=== PATIENT | female | born 1950 | race Caucasian/White ===

== ENCOUNTER → 2017-01-22 | Day surgery (SDC) | payer MEDICARE ==
[~2017-01-22] VITALS: Ht 160 cm; Wt 64.3 kg
[~2017-01-22] MED LIST: *ONDANSETRON 4 MG VIAL PERIprocedural Use ONLY ONE; *PROMETHAZINE 25 MG/ML VIAL PERIprocedural use ONLY ONE; *morphine SULFATE 8 MG/ML PERIprocedure ONLY ONE; ACETAMINOPHEN 1000 MG/100 ML 100 ML IV SCH; BUPIVACAINE/EPINEPHRINE 0.25% PF 30 ML VIAL ONE; CHLORHEXIDINE GLUCONATE 2 % 1 PACK (2 CLOTHS) TOPICAL PRN; DEXAMETHASONE SOD PHOS 4 MG/ML VIAL IV ONE; DO NOT ADM ANY ANTICOAGULANT DRUGS PRN; GLUCAGON 1 MG/ML VIAL ONE; GLYCOPYRROLATE 1 MG/5 ML SYRINGE IV PUSH ONE; LACTATED RINGER'S 1000 ML IV PRN; LIDOCAINE HCL 1% PF 5 ML SYRINGE OTHER ONE; METOPROLOL TARTRATE 25 MG TAB PO PRN; MIDAZOLAM HCL 2 MG/2 ML VIAL IV ONE; MORPHINE SULFATE 4 MG/ML INJ IV PUSH PRN; NEOSTIGMINE 5 MG/5 ML SYRINGE IV PUSH ONE; ONDANSETRON HCL 4 MG/2 ML VIAL IV PUSH ONE; ONDANSETRON HCL 4 MG/2 ML VIAL IV PUSH PRN; PANT20TA2 PO; POVIDONE IODINE 5% (ANTISEPSIS KIT) 4 APPLICATIONS EACH NARE PRN; PROPOFOL 200 MG/20 ML AMP IV ONE; ROCURONIUM INJ 50 MG/5 ML SYRINGE IV PUSH ONE; SODIUM CHLORID 0.9% 500 ML IV PRN; SODIUM CHLORIDE 0.9% FLUSH 10 ML FLUSH IV FLUSH PRN; SODIUM CHLORIDE 0.9% FLUSH 10 ML FLUSH IV FLUSH SCH; ceFAZolin 2 GM PREMIX 50 ML IV SCH; metroNIDAZOLE 500 MG INJ 100 ML IV SCH; oxyCODONE/ACETAMINOPHEN 5 MG/325 MG TAB PO PRN
--- NOTE | 2017-01-22 11:20 | PD.OP ---
cc: Dennis Beltrán MD; Consuelo Rao MD; Mirtha Taylor MD Operative Report Date of Surgery: Jan 22, 2017 Preoperative Diagnosis: (1) Porcelain gallbladder (2) Hyperbilirubinemia Postoperative Diagnosis: (1) Porcelain gallbladder (2) Hyperbilirubinemia (3) Ileitis, terminal Procedure: Laparoscopic cholecystectomy with intraoperative cholangiogram Anesthesia: ADRIENNE Surgeon: Dennis Beltrán [employer] Professor(s): Jossie MCCLELLAN Operation and Findings: Complications: None apparent EBL: 50cc Operative findings: The gallbladder was not acutely inflamed. Cholangiogram was performed and there appeared to be some layering in the distal common bile duct with only a very small amount of contrast proceeding through the ampulla. The terminal ileum for 10-15 cm was significantly inflamed and thickened with creeping fat present consistent with Crohn's disease. Procedure in detail: The patient was taken to the operating room and placed in the supine position. General endotracheal anesthesia was induced. The abdomen was prepped and draped in usual sterile fashion and a surgical timeout was performed to verify correct patient procedure and site. Appropriate perioperative antibiotics were administered. Local anesthetic was injected in the skin and subcutaneous tissue superior to the umbilicus and a 5 mm incision performed. The abdomen was entered using the Optiview 5 mm trocar with direct laparoscopic visualization. The abdomen was then insufflated to 15 mmHg with CO2 gas which the patient tolerated well. Next a 12 mm port was placed in the epigastrium and two 5 mm ports in the right upper quadrant and right lateral abdomen. The patient was placed in reverse Trendelenburg position and turned slightly to the left. Attention was turned to the right upper quadrant and the dome of the gallbladder was grasped and retracted cephalad. The infundibulum was retracted laterally to expose Calot's triangle. Blunt dissection and judicious use of electrocautery was used to expose the cystic duct and the cystic artery directly entering the gallbladder. Two clips were placed proximally on the cystic artery and one distally and it was transected. A clip was placed distally on the cystic duct and the duct was sharply incised care home across. The Gilbert cholangiogram catheter was placed through the right upper quadrant port into the cystic duct and it clip was used to secure it in place. A total of 40 cc of one to one mixture of contrast dye and normal saline was used to perform the cholangiogram. The entire intra-and extrahepatic biliary tree was visible. There was some layering in the distal common bile duct and only a very small amount of contrast entered the duodenum. However no clear filling defects were identified. At this point the cholangiogram catheter was removed. The gallbladder was fully removed from the liver bed using electrocautery and removed from the abdomen using an Endo Catch bag. The cystic duct required more dissection to fully delineated and then an Endoloop was placed around the cystic duct. Some of the contrast and bile had leaked from the cystic duct stump and therefore the right upper quadrant was copiously irrigated. The left lobe of the liver had an area of bleeding from trocar placement. Hemostasis was achieved using electrocautery and 1 g of Nabil. Attention then was turned to the right lower quadrant to evaluate the terminal ileum due to recent imaging findings and her symptoms. 10-15 cm of terminal ileum was obviously very inflamed as well as a thickened. There was creeping fat present. The appendix was normal. The cecum may have had some inflammation as well. At this point, the abdomen was allowed to desufflate and trochars were removed. The fascia at the 12 mm port site was closed with 0 Vicryl suture. Skin was closed with subcuticular 4-0 Monocryl as well as Dermabond. The patient tolerated the procedure well and was extubated and taken to PACU in stable condition. All sponge and instrument counts were correct. Dennis Beltrán MD Jan 22, 2017 11:20
--- NOTE | 2017-01-22 11:28 | RADRPT ---
EXAM DATE/TIME: 01/22/2017 10:01 [facility] COMPARISON: No previous studies available for comparison. INDICATIONS : Interoperative cholangiogram for laproscopic cholecystectomy. FLUORO TIME: 1.6 minutes IMAGE COUNT: 3 MEDICAL HISTORY : None. SURGICAL HISTORY : None. ENCOUNTER: Initial ACUITY: 1 day PAIN SCORE: Non-responsive. LOCATION: Right upper quadrant abdomen PROCEDURE: CHOLANGIOGRAM, OPERATIVE Intraoperative cholangiogram. In the operating room, the cystic duct stump was injected and radiographs obtained. The examination demonstrates faint radiolucent defects within the common bile duct. There is no flow into the duodenum. CONCLUSION: Common bile duct defects with no flow into the duodenum. Dmitri Browne MD on January 22, 2017 at 11:23 Board Certified Radiologist. This report was verified electronically.
[2017-01-22 14:00] VITALS: BP 149/74; PULSE 58; RESP 20; TEMP 97.5; O2SAT 95
== END | disposition home or self-care (01) ==
LOC: HSDC 05:43
PROVIDERS: ATTEND Surgery
DX: K80.10 Calculus of gallbladder with chronic cholecystitis without obstruction (principal); K52.9 Noninfective gastroenteritis and colitis, unspecified; L53.9 Erythematous condition, unspecified; K20.9 Esophagitis, unspecified; R05 Cough; K57.90 Diverticulosis of intestine, part unspecified, without perforation or abscess without bleeding; R59.0 Localized enlarged lymph nodes; R14.1 Gas pain; R14.0 Abdominal distension (gaseous)
CPT/HCPCS: 00790; 47563; 74300; 88304; 94150; J0131; J0690; J1100; J1610; J2250; J2270; J2405; J2710; J3010; J7120; J2550

== ENCOUNTER 2017-02-06 07:34 | Inpatient (IN) | payer MEDICARE ==
[~2017-02-06] VITALS: Ht 160 cm; Wt 64.4 kg
[~2017-02-06 07:34] MED LIST changes: -*ONDANSETRON 4 MG VIAL PERIprocedural Use ONLY ONE; -*PROMETHAZINE 25 MG/ML VIAL PERIprocedural use ONLY ONE; -*morphine SULFATE 8 MG/ML PERIprocedure ONLY ONE; -ACETAMINOPHEN 1000 MG/100 ML 100 ML IV SCH; -BUPIVACAINE/EPINEPHRINE 0.25% PF 30 ML VIAL ONE; -CHLORHEXIDINE GLUCONATE 2 % 1 PACK (2 CLOTHS) TOPICAL PRN; -DEXAMETHASONE SOD PHOS 4 MG/ML VIAL IV ONE; -DO NOT ADM ANY ANTICOAGULANT DRUGS PRN; -GLUCAGON 1 MG/ML VIAL ONE; -GLYCOPYRROLATE 1 MG/5 ML SYRINGE IV PUSH ONE; -LACTATED RINGER'S 1000 ML IV PRN; -LIDOCAINE HCL 1% PF 5 ML SYRINGE OTHER ONE; -METOPROLOL TARTRATE 25 MG TAB PO PRN; -MIDAZOLAM HCL 2 MG/2 ML VIAL IV ONE; -MORPHINE SULFATE 4 MG/ML INJ IV PUSH PRN; -NEOSTIGMINE 5 MG/5 ML SYRINGE IV PUSH ONE; -ONDANSETRON HCL 4 MG/2 ML VIAL IV PUSH ONE; -ONDANSETRON HCL 4 MG/2 ML VIAL IV PUSH PRN; -POVIDONE IODINE 5% (ANTISEPSIS KIT) 4 APPLICATIONS EACH NARE PRN; -PROPOFOL 200 MG/20 ML AMP IV ONE; -ROCURONIUM INJ 50 MG/5 ML SYRINGE IV PUSH ONE; -SODIUM CHLORID 0.9% 500 ML IV PRN; -SODIUM CHLORIDE 0.9% FLUSH 10 ML FLUSH IV FLUSH PRN; -SODIUM CHLORIDE 0.9% FLUSH 10 ML FLUSH IV FLUSH SCH; -ceFAZolin 2 GM PREMIX 50 ML IV SCH; -metroNIDAZOLE 500 MG INJ 100 ML IV SCH; -oxyCODONE/ACETAMINOPHEN 5 MG/325 MG TAB PO PRN
--- NOTE | 2017-02-06 08:20 | EKG ---
Date Performed: 02/06/2017 Time Performed: 08:08:39 PTAGE: 67 years EKG: SINUS BRADYCARDIA BORDERLINE ECG NO PREVIOUS TRACING DOCTOR: Noah Saldana Interpretating Date/Time 02/06/2017 08:19:20
[2017-02-06] MEDS ORDERED: BUDE3CAP PO (08:24)
[2017-02-06] MEDS ORDERED: METOPROLOL TARTRATE 25 MG TAB PO PRN (08:45)
[2017-02-06] MEDS ORDERED: CHLORHEXIDINE GLUCONATE 2 % 1 PACK (2 CLOTHS) TOPICAL PRN (08:45)
[2017-02-06] MEDS ORDERED: LACTATED RINGER'S 1000 ML IV PRN (08:45)
[2017-02-06] MEDS ORDERED: INSULIN HUMAN REGULAR 1,000 UNITS/10 ML VIAL SQ PRN (08:45)
[2017-02-06] MEDS ORDERED: POVIDONE IODINE 5% (ANTISEPSIS KIT) 4 APPLICATIONS EACH NARE PRN (08:45)
[2017-02-06] MEDS ORDERED: SODIUM CHLORID 0.9% 500 ML IV PRN (08:45)
[2017-02-06] MEDS ORDERED: IOHEXOL 300 MG/ML 100 ML BTL (for Rad CT) OTHER ONE (10:26)
[2017-02-06] MEDS ORDERED: ESMOLOL HCL 100 MG/10 ML VIAL ONE (10:46)
--- NOTE | 2017-02-06 11:03 | GIPROC ---
[facility] [address] [facility] [place], [address] ERCP PROCEDURE REPORT EXAM DATE: 02/06/2017 PATIENT NAME: Katty Kemp MR #: [id number] BIRTHDATE: 1950 ATTENDING: Shanna Deluca MD ORDER #: [id number] TOOLING INSPECTOR: Zahra Parsons and Toñito Finney STATUS: outpatient INDICATIONS: The patient is a 67 yr old female here for an ERCP due to postop exam, endoscopic papillectomy and abnormal blood work PROCEDURE PERFORMED: ERCP, diagnostic MEDICATIONS: None and Per Anesthesia. CONSENT: The patient understands the risks and benefits of the procedure and understands that these risks include, but are not limited to: sedation, allergic reaction, infection, perforation and/or bleeding. Alternative means of evaluation and treatment include, among others: physical exam, x-rays, and/or surgical intervention. The patient elects to proceed with this endoscopic procedure. medical equipment was checked for proper function. Hand hygiene and appropriate measures for infection prevention was taken. After the risks, benefits and alternatives of the procedure were thoroughly explained, Informed was verified, confirmed and timeout was successfully executed by the treatment team. With the patient in left semi-prone position, medications were administered intravenously.The Pentax [id number] was passed from the mouth into the esophagus and further advanced from the esophagus into the stomach. From stomach scope was directed to the second portion of the duodenum. Major papilla was aligned with the duodenoscope. The scope position was confirmed fluoroscopically. Rest of the findings/therapeutics are given below. The scope was then completely withdrawn from the patient and the procedure completed. The pulse, BP, and O2 saturation were monitored and documented by the physician and the nursing staff throughout the entire procedure. The patient was cared for as planned according to standard protocol. The patient was then discharged to recovery in stable condition and with appropriate post procedure care. The ampulla was located the second portion of the duodenum. The ampulla appeared normal. Complete blockage at the distal CBD, unable to pass a wire or cannula. ADVERSE EVENT: There were no complications. IMPRESSIONS: 1. Normal appearing ampulla 2. Complete blockage at the distal CBD, unable to pass a wire or cannula RECOMMENDATIONS: [facility] IR for percutanous drainage. REPEAT EXAM: NONE Shanna Deluca MD eSigned: Shanna Deluca MD 02/06/2017 11:03 AM cc:
[2017-02-06] MEDS ORDERED: DO NOT ADM ANY ANTICOAGULANT DRUGS PRN (11:30)
--- NOTE | 2017-02-06 11:37 | RADRPT ---
EXAM DATE/TIME: 02/06/2017 10:23 [facility] COMPARISON: No previous studies available for comparison. INDICATIONS : Choledocolithiasis. FLUORO TIME: 1.75 minutes IMAGE COUNT: 1 CONTRAST: Instilled by Ordering Physician MEDICAL HISTORY : Cholelithiasis. SURGICAL HISTORY : Cholecystectomy. ENCOUNTER: Subsequent ACUITY: 1 day PAIN SCORE: Non-responsive. LOCATION: Right upper quadrant FINDINGS: An ERCP was performed by the ordering physician. Single film was submitted revealing a wire in the distal common duct. CONCLUSION: ERCP as above. Bob Kirk MD FACR on February 06, 2017 at 11:34 Board Certified Radiologist. This report was verified electronically.
[2017-02-06] MEDS ORDERED: PROPOFOL 200 MG/20 ML AMP IV ONE (12:00)
[2017-02-06] MEDS ORDERED: PHENYLEPH/NS 1000 MCG/10 ML SYR IV ONE (12:00)
[2017-02-06 16:25] VITALS: BP 127/70; PULSE 53; RESP 18; TEMP 98.6; O2SAT 99
[2017-02-06] MEDS ORDERED: SODIUM CHLORIDE 0.9% FLUSH 10 ML FLUSH IV FLUSH PRN (17:30)
[2017-02-06] MEDS ORDERED: ACETAMINOPHEN 325 MG TAB PO PRN (17:30)
[2017-02-06] MEDS ORDERED: NALOXONE HCL 0.4 MG/ML AMP IV PUSH PRN (17:30)
--- NOTE | 2017-02-06 17:35 | HHI.HP ---
HPI Service [facility] Hospitalists Primary Care Physician Consuelo Rao MD Admission Diagnosis Chief Complaint: common bile duct obstruction Travel History International Travel<30 Days: No Contact w/Intl Traveler <30 Da: No Traveled to Known Affected Are: No History of Present Illness This is a 67 year old female patient with a past medical history which includes psoriasis, colon polyps, GERD with esophagitis. Patient had recent cholecystectomy 01/22/17 with IOC and HIDA consistent with CBD obstruction. Outpatient labs reviewed and revealed total bilirubin 3.9, AST 74, ALT 127. Patient was taken today for a attempted ERCP with Dr. Deluca. The CBD was found to be completely blocked and Dr. Deluca was unable to pass a wire or cannulate. We were requested to admit the patient. Also consultation has been placed to IR for percutaneous biliary drain placement. Patient at this time reports mild abdominal pain s/p cholecystomy 01/22. Patient denies N/V/D/C, fevers or chills. Review of Systems Gastrointestinal: COMPLAINS OF: Abdominal pain Past Family Social History Past Medical History psoriasis, colon polyps, GERD with esophagitis. Past Surgical History bilateral carpal tunnel release Reported Medications Budesonide DR (Budesonide) 3 Mg Capdr 9 Mg PO DAILY Pantoprazole (Pantoprazole Sodium) 20 Mg Tab 20 Mg PO DAILY Allergies: Coded Allergies: Sulfa (Sulfonamide Antibiotics) (Verified Allergy, Intermediate, Hives, ) clarithromycin (Verified Allergy, Intermediate, Nausea/Vomiting, 02/06/17) Active Ordered Medications Current Medications Medications (Trade) Dose Ordered Sig/Thiago Route Start Time Stop Time Status Last Admin Lactated Ringer's 1,000 ml @ 30 mls/hr Q24H PRN IV 02/06/17 08:45 02/09/17 08:44 02/06/17 08:00 Sodium Chloride 500 ml @ 30 mls/hr [id number] PRN IV 02/06/17 08:45 02/09/17 08:44 (Lopressor) 25 mg EARLY [employer]IL[employer]OD SERVICES COORDINATOR PRN PO 02/06/17 08:45 02/09/17 08:44 (Betadine 5% Antisepsis Kit) 1 applic EARLY [employer]IL[employer]OD SERVICES COORDINATOR PRN EACH NARE 02/06/17 08:45 02/09/17 08:44 (Chlorhexidine 2% Cloth) 3 pack EARLY [employer]IL[employer]OD SERVICES COORDINATOR PRN TOPICAL 02/06/17 08:45 02/09/17 08:44 (NovoLIN R INJ) See Protocol Table ... EARLY CHILDHOOD SERVICES COORDINATOR PRN SQ 02/06/17 08:45 02/09/17 08:44 Miscellaneous Information ALL NURSING DEPARTME... 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 denies ETOH use quit smoking in 2016 prior to that smoked 1-2 PPD for 20 years Physical Exam Vital Signs Vital Signs Date Time Temp Pulse Resp B/P (MAP) Pulse Ox O2 Delivery O2 Flow Rate FiO2 02/06/17 16:14 98.0 55 20 111/61 (78) 98 Nasal Cannula 2 02/06/17 15:00 55 20 110/62 (78) 98 Nasal Cannula 2 02/06/17 14:00 55 20 120/64 (82) 98 Nasal Cannula 2 02/06/17 13:00 55 20 116/60 (78) 98 Nasal Cannula 2 02/06/17 12:00 55 20 121/62 (81) 98 Nasal Cannula 2 02/06/17 11:45 53 20 108/51 (70) 98 Nasal Cannula 2 02/06/17 11:30 48 20 131/60 (83) 96 Nasal Cannula 2 02/06/17 11:15 50 20 115/63 (80) 98 Nasal Cannula 2 02/06/17 11:08 98.1 62 20 149/80 (103) 96 Nasal Cannula 2 02/06/17 08:34 02/06/17 08:29 98.3 51 16 123/69 (87) 98 Physical Exam GENERAL: This is a well-nourished, well-developed patient, in no apparent distress. SKIN: No rashes, ecchymoses or lesions. Cool and dry. HEAD: Atraumatic. Normocephalic. No temporal or scalp tenderness. EYES: Pupils equal round and reactive. Extraocular motions intact. No scleral icterus. No injection or drainage. ENT: Nose without bleeding, purulent drainage or septal hematoma. Throat without erythema, tonsillar hypertrophy or exudate. Uvula midline. Airway patent. NECK: Trachea midline. No JVD or lymphadenopathy. Supple, nontender, no meningeal signs. CARDIOVASCULAR: Regular rate and rhythm without murmurs, gallops, or rubs. RESPIRATORY: Clear to auscultation. Breath sounds equal bilaterally. No wheezes , rales, or rhonchi. GASTROINTESTINAL: Abdomen soft, non-tender, nondistended. No hepato-splenomegaly , or palpable masses. No guarding. MUSCULOSKELETAL: Extremities without clubbing, cyanosis, or edema. No joint tenderness, effusion, or edema noted. No calf tenderness. Negative Homans sign bilaterally. NEUROLOGICAL: Awake and alert. Cranial nerves II through XII intact. Motor and sensory grossly within normal limits. Five out of 5 muscle strength in all muscle groups. Normal speech. Imaging Last Impressions GI Procedure 02/06/17 0000 Signed Impressions: Service Date/Time: Monday, February 06, 2017 10:23 - CONCLUSION: ERCP as above. Bob Kirk MD FACR Caprini VTE Risk Assessment Caprini VTE Risk Assessment: No/Low Risk (score <= 1) Caprini Risk Assessment Model Point Value = 1 Point Value = 2 Point Value = 3 Point Value = 5 Age 41-60 Minor surgery BMI > 25 kg/m2 Swollen legs Varicose veins or History of unexplained or recurrent spontaneous Oral contraceptives or hormone replacement Sepsis (< 1 month) Serious lung disease, including pneumonia (< 1 month) Abnormal pulmonary function Acute myocardial infarction Congestive heart failure (< 1 month) History of inflammatory bowel disease Medical patient at bed rest Age 61-74 Arthroscopic surgery Major open surgery (> 45 min) Laparoscopic surgery (> 45 min) Malignancy Confined to bed (> 72 hours) Immobilizing plaster cast Central venous access Age >= 75 History of VTE Family history of VTE Factor V Leiden Prothrombin [id number] Lupus anticoagulant Anticardiolipin antibodies Elevated serum homocysteine Heparin-induced thrombocytopenia Other congenital or acquired thrombophilia Stroke (< 1 month) Elective arthroplasty Hip, pelvis, or leg fracture Acute spinal cord injury (< 1 month) Prophylaxis Regimen Total Risk Factor Score Risk Level Prophylaxis Regimen 0-1 Low Early ambulation 2 Moderate Order ONE of the following: *Sequential Compression Device (SCD) *Heparin 5000 units SQ BID 3-4 Higher Order ONE of the following medications: *Heparin 5000 units SQ TID *Enoxaparin/Lovenox 40 mg SQ daily (WT < 150 kg, CrCl > 30 mL/min) *Enoxaparin/Lovenox 30 mg SQ daily (WT < 150 kg, CrCl > 10-29 mL/min) *Enoxaparin/Lovenox 30 mg SQ BID (WT < 150 kg, CrCl > 30 mL/min) AND/OR *Sequential Compression Device (SCD) 5 or more Highest Order ONE of the following medications: *Heparin 5000 units SQ TID (Preferred with Epidurals) *Enoxaparin/Lovenox 40 mg SQ daily (WT < 150 kg, CrCl > 30 mL/min) *Enoxaparin/Lovenox 30 mg SQ daily (WT < 150 kg, CrCl > 10-29 mL/min) *Enoxaparin/Lovenox 30 mg SQ BID (WT < 150 kg, CrCl > 30 mL/min) AND *Sequential Compression Device (SCD) Assessment and Plan Problem List: (1) Common bile duct (CBD) obstruction ICD Codes: K83.1 - Obstruction of bile duct Plan: This is a 67 year old female patient with a past medical history which includes psoriasis, colon polyps, GERD with esophagitis. Patient had recent cholecystectomy with IOC and HIDA consistent with CBD obstruction. Outpatient labs reviewed and revealed total bilirubin 3.9, AST 74, ALT 127. Patient was taken today for a attempted ERCP with Dr. Deluca. The CBD was found to be completely blocked and Dr. Deluca was unable to pass a wire or cannulate. We were requested to admit the patient. Also consultation has been placed to IR for percutaneous biliary drain placement. - NPO - IVF for hydration - CMP in AM - consult to IR - consult to GI DVT prophylaxis with SCDs Assessment and Plan Patient examined. Assessment and plan formulated with Demetrice Saldaña PA-C. I agree with the above. Physician Certification 2 Midnight Certification Type: Admission for Inpatient Services Order for Inpatient Services The services are ordered in accordance with Medicare regulations or non- Medicare payer requirements, as applicable. In the case of services not specified as inpatient-only, they are appropriately provided as inpatient services in accordance with the 2-midnight benchmark. Estimated LOS (days): 3 days is the estimated time the patient will need to remain in the hospital, assuming treatment plan goals are met and no additional complications. Post-Hospital Plan: Home Demetrice Saldaña Feb 06, 2017 17:35 Mp Peterson DO Feb 11, 2017 01:28
[2017-02-06] MEDS: PANTOPRAZOLE SODIUM 40 MG VIAL IV PUSH SCH (18:31)
[2017-02-06] MEDS: SODIUM CHLOR 0.9% 1000 ML INJ 1,000 ML IV SCH (18:32)
[2017-02-06 20:00] VITALS: BP 133/68; PULSE 52; PULSE 54; RESP 18; TEMP 98.2; O2SAT 99
[2017-02-06] MEDS: SODIUM CHLORIDE 0.9% FLUSH 10 ML FLUSH IV FLUSH SCH (20:54)
--- NOTE | 2017-02-06 23:33 | RADRPT ---
EXAM DATE/TIME: 02/06/2017 17:39 [facility] COMPARISON: CHOLANGIOGRAM OPERATIVE, January 22, 2017, 10:01. GI LAB ERCP, February 06, 2017, 10:23. INDICATIONS : Obstruction. MEDICAL HISTORY : None. SURGICAL HISTORY : Cholecystectomy. Tubal ligation. ENCOUNTER: Subsequent ACUITY: 1 day PAIN SCORE: 4/10 LOCATION: Abdomen. TECHNIQUE: Multiplanar, multisequence magnetic resonance imaging of the abdomen was performed. High-resolution 3D dataset was utilized to reconstruct maximum-intensity projection (MIP) images. FINDINGS: INTRAHEPATIC BILE DUCTS: Within normal limits. No significant anatomical variant is present. EXTRAHEPATIC BILE DUCTS: The common bile duct measures 5 mm No stone or filling defect is identified. GALLBLADDER: The patient is status post cholecystectomy. LIVER: Normal size and signal intensity. No concerning liver lesion is identified on this non-contrast exam. PANCREAS: The main pancreatic duct is normal in size. There is no significant anatomical variant. Signal inte nsity is within normal limits. No mass is visualized on this non-contrast exam. OTHER: The spleen appears upper limits of normal for size. CONCLUSION: 1. Status post cholecystectomy. 2. Biliary duct dilatation or filling defects are not seen. Kenn Johnson MD on February 06, 2017 at 23:29 Board Certified Radiologist. This report was verified electronically.
[2017-02-07] VITALS (12 sets, daily range): BP systolic 106–137; BP diastolic 55–73; PULSE 45–71; RESP 18–20; TEMP 98–98.6; O2SAT 94–98
[2017-02-07 07:35] LABS: AUTOMATED NEUTROPHIL # 4.1 TH/MM3 (1.8-7.7); BASOPHIL # 0.1 TH/MM3 (0-0.2); EOSINOPHIL # 0.2 TH/MM3 (0-0.4); EOSINOPHIL % 3.6 % (0.0-4.0); HEMATOCRIT 39.2 % (35.0-46.0); HEMO FLAGS DIFF FINAL; LYMPH % 22.6 % (9.0-44.0); LYMPHOCYTE # 1.5 TH/MM3 (1.0-4.8); MEAN CELL VOLUME 84.6 FL (80.0-100.0); MEAN CORPUSCULAR HEMOGLOBIN 29.2 PG (27.0-34.0); MEAN CORPUSCULAR HGB CONC 34.5 % (32.0-36.0); MONO % 9.5 % (0.0-8.0); NEUT % 63.3 % (16.0-70.0); PLATELET COUNT 227 TH/MM3 (150-450); RED BLOOD COUNT 4.63 MIL/MM3 (4.00-5.30); RED CELL DISTRIBUTION WIDTH 14.3 % (11.6-17.2); WHITE BLOOD COUNT 6.5 TH/MM3 (4.0-11.0)
[2017-02-07 07:51] LABS: ALT (GPT) 37 U/L (10-53); ANION GAP 7 MEQ/L (5-15); AST (GOT) 19 U/L (15-37); BICARBONATE 25.3 MEQ/L (21.0-32.0); BLOOD UREA NITROGEN 13 MG/DL (7-18); CHLORIDE 108 MEQ/L (98-107); GLOMERULAR FILTRATION RATE 83 ML/MIN (>89); POTASSIUM 3.9 MEQ/L (3.5-5.1); SODIUM (NA) 140 MEQ/L (136-145)
[2017-02-07 07:53] LABS: ALKALINE PHOSPHATASE 134 U/L (45-117)
[2017-02-07] MEDS: SODIUM CHLOR 0.9% 1000 ML INJ 1,000 ML IV SCH ×2 (08:28→20:01)
[2017-02-07] MEDS: SODIUM CHLORIDE 0.9% FLUSH 10 ML FLUSH IV FLUSH SCH ×2 (08:29→21:00)
--- NOTE | 2017-02-07 08:51 | PD.CONS ---
HPI History of Present Illness This is a 67 year old female who had a cholecystectomy done on 01/22/17. She initially presented with nausea and vomiting and abdominal pain; still notes abdominal pain to be epigastric and right upper quadrant. No further nausea and vomiting for now. Patient had attempt of ERCP with on 02-06-17, but unable to pass wire or cannulate. Symptoms are consistent with CBD obstruction, patient also had MRCP on 02-06. And is now scheduled for percutaneous biliary drain placement, 02-07-17. Patient is sitting up in chair , awake, alert, nothing by mouth, denies any fever, no heartburn. Patient has history of colon polyps with multiple colonoscopies, and GERD with esophagitis. (Zandra Little) PFSH Past Medical History Psoriasis Colon polyps GERD with esophagitis Tobacco user Past Surgical History Cholecystectomy 01/22/17 Bilateral carpal tunnel release 5 or 6 colonoscopies (Zandra Little) Coded Allergies: Sulfa (Sulfonamide Antibiotics) (Verified Allergy, Intermediate, Hives, ) clarithromycin (Verified Allergy, Intermediate, Nausea/Vomiting, 02/06/17) Medications Administered Medications Medications (Trade) Dose Ordered Sig/Thiago Route PRN Reason Start Time Stop Time Status Last Admin Dose Admin Lactated Ringer's 1,000 ml @ 30 mls/hr Q24H PRN IV SEE LABEL COMMENTS 02/06/17 08:45 02/09/17 08:44 02/06/17 08:00 Sodium Chloride 1,000 ml @ 75 mls/hr [id number] IV 02/06/17 17:21 02/07/17 08:28 Pantoprazole Sodium (Protonix Inj) 40 mg Q24H IV PUSH 02/06/17 18:00 02/06/17 18:31 Pneumococcal Polyvalent Vaccine (Pneumovax-23 Inj) 25 mcg ONCE ONCE IM 02/07/17 10:00 02/07/17 10:01 02/07/17 08:23 Social History Patient currently is a smoker denies any alcohol or illicit drugs (Zandra Little) Review of Systems Gastrointestinal: COMPLAINS OF: Abdominal pain, Nausea, Vomiting (Zandra Little) GI Exam Vitals I&O Vital Signs Date Time Temp Pulse Resp B/P (MAP) Pulse Ox O2 Delivery O2 Flow Rate FiO2 02/07/17 08:07 Nasal Cannula 2.00 02/07/17 04:08 51 02/07/17 04:00 98.2 53 18 118/63 (81) 97 02/07/17 04:00 Nasal Cannula 3.00 02/07/17 00:00 98.0 52 20 106/73 (84) 98 02/07/17 00:00 Nasal Cannula 3.00 02/07/17 00:00 49 02/06/17 20:00 98.2 52 18 133/68 (89) 99 02/06/17 20:00 54 02/06/17 20:00 Nasal Cannula 3.00 02/06/17 16:25 98.6 53 18 127/70 (89) 99 02/06/17 16:14 98.0 55 20 111/61 (78) 98 Nasal Cannula 2 02/06/17 15:00 55 20 110/62 (78) 98 Nasal Cannula 2 02/06/17 14:00 55 20 120/64 (82) 98 Nasal Cannula 2 02/06/17 13:00 55 20 116/60 (78) 98 Nasal Cannula 2 02/06/17 12:00 55 20 121/62 (81) 98 Nasal Cannula 2 02/06/17 11:45 53 20 108/51 (70) 98 Nasal Cannula 2 02/06/17 11:30 48 20 131/60 (83) 96 Nasal Cannula 2 02/06/17 11:15 50 20 115/63 (80) 98 Nasal Cannula 2 02/06/17 11:08 98.1 62 20 149/80 (103) 96 Nasal Cannula 2 I/O 02/06/17 02/06/17 02/06/17 02/07/17 02/07/17 02/07/17 07:00 15:00 23:00 07:00 15:00 23:00 Intake Total 600 ml 825 ml Balance 600 ml 825 ml Intake IV Total 825 ml Other 600 ml # Voids 2 Imaging Last Impressions GI Procedure 02/06/17 0000 Signed Impressions: Service Date/Time: Monday, February 06, 2017 10:23 - CONCLUSION: ERCP as above. Bob Kirk MD FACR Cholangiopancreatography MRI 02/06/17 0000 Signed Impressions: Service Date/Time: Monday, February 06, 2017 17:39 - CONCLUSION: 1. Status post cholecystectomy. 2. Biliary duct dilatation or filling defects are not seen. Kenn Johnson MD Laboratory Test 02/07/17 06:15 White Blood Count 6.5 TH/MM3 Red Blood Count 4.63 MIL/MM3 Hemoglobin 13.5 GM/DL Hematocrit 39.2 % Mean Corpuscular Volume 84.6 FL Mean Corpuscular Hemoglobin 29.2 PG Mean Corpuscular Hemoglobin Concent 34.5 % Red Cell Distribution Width 14.3 % Platelet Count 227 TH/MM3 Mean Platelet Volume 7.1 FL Neutrophils (%) (Auto) 63.3 % Lymphocytes (%) (Auto) 22.6 % Monocytes (%) (Auto) 9.5 % Eosinophils (%) (Auto) 3.6 % Basophils (%) (Auto) 1.0 % Neutrophils # (Auto) 4.1 TH/MM3 Lymphocytes # (Auto) 1.5 TH/MM3 Monocytes # (Auto) 0.6 TH/MM3 Eosinophils # (Auto) 0.2 TH/MM3 Basophils # (Auto) 0.1 TH/MM3 CBC Comment DIFF FINAL Differential Comment Blood Urea Nitrogen 13 MG/DL Creatinine 0.71 MG/DL Random Glucose 83 MG/DL Total Protein 5.7 GM/DL Albumin 3.0 GM/DL Calcium Level 8.6 MG/DL Alkaline Phosphatase 134 U/L Aspartate Amino Transf (AST/SGOT) 19 U/L Alanine Aminotransferase (ALT/SGPT) 37 U/L Total Bilirubin 2.0 MG/DL Sodium Level 140 MEQ/L Potassium Level 3.9 MEQ/L Chloride Level 108 MEQ/L Carbon Dioxide Level 25.3 MEQ/L Anion Gap 7 MEQ/L Estimat Glomerular Filtration Rate 83 ML/MIN Physical Examination HEENT: Pupils round and reactive to light; normocephalic; atraumatic; no jaundice. Oral cavity clear NECK: Neck is supple, no JVD, no lymphadenopathy. CHEST: Chest is clear to auscultation and percussion. CARDIAC: Regular rate and rhythm with no murmur gallop or rubs. ABDOMEN: Soft, nondistended, epigastric and right upper quadrant tenderness with light palpation; no hepatosplenomegaly; bowel sounds are present in all four quadrants. EXTREMITIES: No clubbing, cyanosis, or edema., Thin slim frame SKIN: Normal; no rash; no jaundice. 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 (Zandra Little) Assessment and Plan Assessment: (1) Hyperbilirubinemia ICD Codes: E80.6 - Other disorders of bilirubin metabolism (2) Common bile duct (CBD) obstruction ICD Codes: K83.1 - Obstruction of bile duct Plan History of cholecystectomy on 01/22/17 with IOC and HIDA scan consistent with CBD obstruction Attempted ERCP on 02/06/17, MRCP afterwards, 02/06/17 Plan for IR percutaneous biliary drain placement 02/07/17 Currently nothing by mouth Continue PPI Continue budesonide for now Call for any acute onset of pain or bleeding Continue to monitor labs Patient was seen by myself and Dr. Deluca, this note is written on his behalf (Zandra Little) Physician Comments Agree with above assessment and plan, post ERCP and no complications, failed free cannulation but likely stone dislodged, MRCP and LFT's significantly improved, Stable from GI point of view for discharge. (Shanna Deluca MD) Zandra Little Feb 07, 2017 08:51 Shanna Deluca MD Feb 07, 2017 09:23
[2017-02-07] MEDS ORDERED: PNEUMOCOCCAL POLYVALENT INJ 25 MCG/0.5 ML SYR IM ONE (10:00)
[2017-02-07] MEDS: ONDANSETRON HCL 4 MG/2 ML VIAL IVP PRN ×2 (10:47→18:21)
--- NOTE | 2017-02-07 12:36 | HHI.DS ---
Discharge Summary Admission Date Feb 06, 2017 at 17:25 Discharge Date: Feb 08, 2017 Admitting Diagnosis CBD obstruction (1) Common bile duct (CBD) obstruction Diagnosis: Principal ICD Codes: K83.1 - Obstruction of bile duct Consultants Dr. Deluca Procedures attempted ERCP with Dr. Deluca 02/07 Dr. Deluca was unable to pass a wire or cannulate Brief History This is a 67 year old female patient with a past medical history which includes psoriasis, colon polyps, GERD with esophagitis. Patient had recent cholecystectomy 01/22/17 with IOC and HIDA consistent with CBD obstruction. Outpatient labs reviewed and revealed total bilirubin 3.9, AST 74, ALT 127. Patient was taken today for a attempted ERCP with Dr. Deluca. The CBD was found to be completely blocked and Dr. Deluca was unable to pass a wire or cannulate. We were requested to admit the patient. Also consultation has been placed to IR for percutaneous biliary drain placement. Patient at this time reports mild abdominal pain s/p cholecystomy 01/22. Patient denies N/V/D/C, fevers or chills. CBC/BMP: 02/07/17 0615 02/07/17 0615 Significant Findings Laboratory Tests Test 02/07/17 06:15 Monocytes (%) (Auto) 9.5 % (0.0-8.0) Total Protein 5.7 GM/DL (6.4-8.2) Albumin 3.0 GM/DL (3.4-5.0) Alkaline Phosphatase 134 U/L (45-117) Total Bilirubin 2.0 MG/DL (0.2-1.0) Chloride Level 108 MEQ/L (98-107) Estimat Glomerular Filtration Rate 83 ML/MIN (>89) Imaging Last Impressions GI Procedure 02/06/17 0000 Signed Impressions: Service Date/Time: Monday, February 06, 2017 10:23 - CONCLUSION: ERCP as above. Bob Kirk MD FACR Cholangiopancreatography MRI 02/06/17 0000 Signed Impressions: Service Date/Time: Monday, February 06, 2017 17:39 - CONCLUSION: 1. Status post cholecystectomy. 2. Biliary duct dilatation or filling defects are not seen. Kenn Johnson MD PE at Discharge GENERAL: This is a well-nourished, well-developed patient, in no apparent distress. CARDIOVASCULAR: Regular rate and rhythm without murmurs, gallops, or rubs. RESPIRATORY: Clear to auscultation. Breath sounds equal bilaterally. No wheezes , rales, or rhonchi. GASTROINTESTINAL: Abdomen soft, non-tender, nondistended. MUSCULOSKELETAL: Extremities without clubbing, cyanosis, or edema. No joint tenderness, effusion, or edema noted. No calf tenderness. Negative Homans sign bilaterally. NEUROLOGICAL: Awake and alert. No focal deficits appreciated. Motor and sensory grossly within normal limits. Five out of 5 muscle strength in all muscle groups. Normal speech. Hospital Course Common bile duct (CBD) obstruction This is a 67 year old female patient with a past medical history which includes psoriasis, colon polyps, GERD with esophagitis. Patient had recent cholecystectomy with IOC and HIDA consistent with CBD obstruction. Outpatient labs reviewed and revealed total bilirubin 3.9, AST 74, ALT 127. Patient was taken today for a attempted ERCP with Dr. Deluca. The CBD was found to be completely blocked and Dr. Deluca was unable to pass a wire or cannulate. We were requested to admit the patient. Also consultation has been placed to IR for percutaneous biliary drain placement. - NPO initially which was advanced after MRI reviewed. - IVF for hydration while NPO - CMP reviewed and reveal liver enzymes improving - consult to IR- cancelled MRI reviewed and revealed: Status post cholecystectomy. Biliary duct dilation or filling defects are not seen - consult to GI, appreciate input. Case discussed with Dr. Deluca cleared patient for DC - 02/08 Patient reports 3 BMs today described as soft serve ice cream brown in color. Patient denies red blood or black color to stools - asking to go home, reports tolerating diet - Budesonide DC'd patient reports hot flashes and no longer wants to take Budesonide. pathology for colonoscopy 12/18/16 reviewed and benign. Patient to follow up with GI outpatient after DC DVT prophylaxis with SCDs Pt Condition on Discharge: Stable Discharge Disposition: Discharge Home Discharge Instructions DIET: Follow Instructions for: As Tolerated, No Restrictions Activities you can perform: Regular-No Restrictions Follow up Referrals: Gastroenterology - 2 Weeks with Mirtha Taylor MD PCP Follow-up - [address] Rao Continued Medications: Pantoprazole (Pantoprazole) 20 Mg Tab 20 MG PO DAILY for Reflux, #30 TAB 0 Refills Discontinued Medications: Budesonide (Budesonide ) 3 Mg Capdr 9 MG PO DAILY, #90 CAP 0 Refills Additional Information Patient examined. Assessment and plan formulated with Demetrice Saldaña PA-C. I agree with the above. Demetrice Saldaña Feb 07, 2017 12:36 Mp Peterson DO Feb 11, 2017 01:29
[2017-02-07] MEDS ORDERED: ACETAMINOPHEN/HYDROcodone 325 MG/5 MG TAB PO PRN (14:45)
--- NOTE | 2017-02-07 14:53 | HHI.PR ---
Subjective Remarks Patient having abd pain and bloating after clear liquids Objective Vitals Vital Signs Date Time Temp Pulse Resp B/P (MAP) Pulse Ox O2 Delivery O2 Flow Rate FiO2 02/07/17 12:02 49 02/07/17 12:00 98.6 48 20 132/65 (87) 95 02/07/17 08:07 71 02/07/17 08:07 Nasal Cannula 2.00 02/07/17 08:00 98.2 56 20 108/58 (75) 94 02/07/17 04:08 51 02/07/17 04:00 98.2 53 18 118/63 (81) 97 02/07/17 04:00 Nasal Cannula 3.00 02/07/17 00:00 98.0 52 20 106/73 (84) 98 02/07/17 00:00 Nasal Cannula 3.00 02/07/17 00:00 49 02/06/17 20:00 98.2 52 18 133/68 (89) 99 02/06/17 20:00 54 02/06/17 20:00 Nasal Cannula 3.00 02/06/17 16:25 98.6 53 18 127/70 (89) 99 02/06/17 16:14 98.0 55 20 111/61 (78) 98 Nasal Cannula 2 02/06/17 15:00 55 20 110/62 (78) 98 Nasal Cannula 2 02/07/17 02/07/17 02/08/17 15:00 23:00 07:00 Intake Total 825 ml Balance 825 ml Intake IV Total 825 ml Result Diagram: 02/07/1715 02/07/17 0615 Other Results Laboratory Tests Test 02/07/17 06:15 White Blood Count 6.5 TH/MM3 Red Blood Count 4.63 MIL/MM3 Hemoglobin 13.5 GM/DL Hematocrit 39.2 % Mean Corpuscular Volume 84.6 FL Mean Corpuscular Hemoglobin 29.2 PG Mean Corpuscular Hemoglobin Concent 34.5 % Red Cell Distribution Width 14.3 % Platelet Count 227 TH/MM3 Mean Platelet Volume 7.1 FL Neutrophils (%) (Auto) 63.3 % Lymphocytes (%) (Auto) 22.6 % Monocytes (%) (Auto) 9.5 % Eosinophils (%) (Auto) 3.6 % Basophils (%) (Auto) 1.0 % Neutrophils # (Auto) 4.1 TH/MM3 Lymphocytes # (Auto) 1.5 TH/MM3 Monocytes # (Auto) 0.6 TH/MM3 Eosinophils # (Auto) 0.2 TH/MM3 Basophils # (Auto) 0.1 TH/MM3 CBC Comment DIFF FINAL Differential Comment Blood Urea Nitrogen 13 MG/DL Creatinine 0.71 MG/DL Random Glucose 83 MG/DL Total Protein 5.7 GM/DL Albumin 3.0 GM/DL Calcium Level 8.6 MG/DL Alkaline Phosphatase 134 U/L Aspartate Amino Transf (AST/SGOT) 19 U/L Alanine Aminotransferase (ALT/SGPT) 37 U/L Total Bilirubin 2.0 MG/DL Sodium Level 140 MEQ/L Potassium Level 3.9 MEQ/L Chloride Level 108 MEQ/L Carbon Dioxide Level 25.3 MEQ/L Anion Gap 7 MEQ/L Estimat Glomerular Filtration Rate 83 ML/MIN Imaging Last Impressions GI Procedure 02/06/17 0000 Signed Impressions: Service Date/Time: Monday, February 06, 2017 10:23 - CONCLUSION: ERCP as above. Bob Kirk MD FACR Objective Remarks GENERAL: This is a well-nourished, well-developed patient, in no apparent distress. CARDIOVASCULAR: Regular rate and rhythm without murmurs, gallops, or rubs. RESPIRATORY: Clear to auscultation. Breath sounds equal bilaterally. No wheezes , rales, or rhonchi. GASTROINTESTINAL: Abdomen soft, mild bloating, MUSCULOSKELETAL: Extremities without clubbing, cyanosis, or edema. No joint tenderness, effusion, or edema noted. No calf tenderness. Negative Homans sign bilaterally. NEUROLOGICAL: Awake and alert. No focal deficits appreciated. Motor and sensory grossly within normal limits. Five out of 5 muscle strength in all muscle groups. Normal speech. Procedures attempted ERCP with Dr. Deluca 02/07 Dr. Deluca was unable to pass a wire or cannulate A/P Problem List: (1) Common bile duct (CBD) obstruction ICD Codes: K83.1 - Obstruction of bile duct Plan: This is a 67 year old female patient with a past medical history which includes psoriasis, colon polyps, GERD with esophagitis. Patient had recent cholecystectomy with IOC and HIDA consistent with CBD obstruction. Outpatient labs reviewed and revealed total bilirubin 3.9, AST 74, ALT 127. Patient was taken for a attempted ERCP with Dr. Deluca (02/06). The CBD was found to be completely blocked and Dr. Deluca was unable to pass a wire or cannulate. We were requested to admit the patient. Also consultation has been placed to IR for percutaneous biliary drain placement. - NPO initially which was advanced after MRI reviewed. - IVF for hydration while NPO - CMP reviewed and reveal liver enzymes improving - consult to IR- cancelled MRI reviewed and revealed: Status post cholecystectomy. Biliary duct dilation or filling defects are not seen - consult to GI, appreciate input. Case discussed with Dr. Deluca cleared patient for DC - patient had abdominal pain and bloating after clear liquid diet, add simethicone and norco PRN - continue to monitor Patient reports hot flashes after taking budesonide does not want to take any further Dr. Peterson will clarify with GI DVT prophylaxis with SCDs Discharge planning patient unable to tolerated PO intake Assessment and Plan Patient examined. Assessment and plan formulated with Demetrice Saldaña PA-C. I agree with the above. Pt had ERCP (02/06) ERCP showed complete blockage of CBD. MRCP (02/07) did NOT show blockage and LFTs have improved from outpt labs. bilirubin 3.9 (01/25) and 2.0 (02/07) Pt unable to tolerate clears at lunch. norco prn observe overnight. try clear meal again at dinner. Repeat labs in AM Demetrice Saldaña Feb 07, 2017 14:53 Mp Peterson DO Feb 07, 2017 16:22
[2017-02-07] MEDS ORDERED: SIMETHICONE 125 MG CHEWABLE TAB PO PRN (15:00)
[2017-02-07] MEDS: PANTOPRAZOLE SODIUM 40 MG VIAL IV PUSH SCH (17:26)
[2017-02-08] VITALS (7 sets, daily range): BP systolic 118–146; BP diastolic 58–84; PULSE 47–73; RESP 17–20; TEMP 98–98.7; O2SAT 93–97
[2017-02-08] MEDS: SODIUM CHLORIDE 0.9% FLUSH 10 ML FLUSH IV FLUSH SCH (09:00)
[2017-02-08 11:14] LABS: AUTOMATED NEUTROPHIL # 4.2 TH/MM3 (1.8-7.7); BASOPHIL # 0.1 TH/MM3 (0-0.2); EOSINOPHIL # 0.2 TH/MM3 (0-0.4); EOSINOPHIL % 2.8 % (0.0-4.0); HEMATOCRIT 39.7 % (35.0-46.0); HEMO FLAGS DIFF FINAL; LYMPH % 19.9 % (9.0-44.0); LYMPHOCYTE # 1.2 TH/MM3 (1.0-4.8); MEAN CORPUSCULAR HEMOGLOBIN 29.1 PG (27.0-34.0); MEAN CORPUSCULAR HGB CONC 34.6 % (32.0-36.0); MONO % 8.9 % (0.0-8.0); NEUT % 67.4 % (16.0-70.0); PLATELET COUNT 208 TH/MM3 (150-450); RED BLOOD COUNT 4.73 MIL/MM3 (4.00-5.30); WHITE BLOOD COUNT 6.2 TH/MM3 (4.0-11.0)
[2017-02-08] MEDS: SODIUM CHLOR 0.9% 1000 ML INJ 1,000 ML IV SCH (11:19)
[2017-02-08 11:32] LABS: MAGNESIUM 2.1 MG/DL (1.5-2.5)
[2017-02-08 11:34] LABS: INDIRECT BILIRUBIN 1.9 MG/DL (0.0-0.8); TOTAL BILIRUBIN ADULT 2.6 MG/DL (0.2-1.0)
--- NOTE | 2017-02-08 13:15 | HHI.GIFU ---
Subjective Remarks awake resting in bed notes diarrhea X 3-4 this am. describes it as dark, mucoid. afebrile. abd pain improving (Zandra Little) Objective Vitals I&O Vital Signs Date Time Temp Pulse Resp B/P (MAP) Pulse Ox O2 Delivery O2 Flow Rate FiO2 02/08/17 12:00 98.7 49 17 124/71 (88) 96 02/08/17 11:49 97 02/08/17 08:16 98.3 50 18 146/66 (92) 93 02/08/17 05:58 98.1 47 20 118/58 (78) 93 02/08/17 04:00 Nasal Cannula 2.00 02/08/17 03:51 47 02/08/17 00:59 98.0 53 20 134/84 (101) 94 02/08/17 00:00 Nasal Cannula 2.00 02/07/17 23:44 51 02/07/17 20:50 94 21 02/07/17 20:00 Nasal Cannula 2.00 02/07/17 20:00 98.0 47 19 111/55 (73) 95 02/07/17 19:54 45 02/07/17 18:45 3.00 02/07/17 16:00 47 02/07/17 16:00 98.3 51 20 137/67 (90) 96 I/O 02/07/17 02/07/17 02/07/17 02/08/17 02/08/17 02/08/17 07:00 15:00 23:00 07:00 15:00 23:00 Intake Total 825 ml 825 ml 1720 ml 749 ml Output Total 1100 ml 500 ml Balance 825 ml 825 ml 620 ml 249 ml Intake Oral 720 ml IV Total 825 ml 825 ml 1000 ml 749 ml Output Urine Total 1100 ml 500 ml # Voids 2 1 # Bowel Movements 2 Laboratory Laboratory Tests Test 02/08/17 09:16 White Blood Count 6.2 Red Blood Count 4.73 Hemoglobin 13.8 Hematocrit 39.7 Mean Corpuscular Volume 84.0 Mean Corpuscular Hemoglobin 29.1 Mean Corpuscular Hemoglobin Concent 34.6 Red Cell Distribution Width 14.0 Platelet Count 208 Mean Platelet Volume 7.5 Neutrophils (%) (Auto) 67.4 Lymphocytes (%) (Auto) 19.9 Monocytes (%) (Auto) 8.9 Eosinophils (%) (Auto) 2.8 Basophils (%) (Auto) 1.0 Neutrophils # (Auto) 4.2 Lymphocytes # (Auto) 1.2 Monocytes # (Auto) 0.6 Eosinophils # (Auto) 0.2 Basophils # (Auto) 0.1 CBC Comment DIFF FINAL Differential Comment Blood Urea Nitrogen 10 Creatinine 0.85 Random Glucose 93 Total Protein 6.1 Albumin 3.4 Calcium Level 8.9 Magnesium Level 2.1 Alkaline Phosphatase 139 Aspartate Amino Transf (AST/SGOT) 20 Alanine Aminotransferase (ALT/SGPT) 38 Total Bilirubin 2.6 Direct Bilirubin 0.7 Sodium Level 140 Potassium Level 4.0 Chloride Level 106 Carbon Dioxide Level 28.0 Anion Gap 6 Estimat Glomerular Filtration Rate 67 Indirect Bilirubin 1.9 Physical Exam HEENT: Pupils round and reactive to light; normocephalic; atraumatic; no jaundice. Throat clean NECK: Neck is supple, no JVD, no lymphadenopathy. CHEST: Chest is clear to auscultation and percussion. CARDIAC: Regular rate and rhythm with no murmur gallop or rubs. ABDOMEN: Soft, mild generalized tenderness; no hepatosplenomegaly; bowel sounds are present EXTREMITIES: No clubbing, cyanosis, or edema. SKIN: Normal; no rash; no jaundice. 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 Diarrhea, onset 02-08, patient states dark, mucoid. Last Colonoscopy 11/2016 Diet.advance as tolerated hemoccult stool Continue PPI Continue budesonide for now Call for any acute onset of pain or bleeding Continue to monitor labs Patient was seen by myself and Dr. Deluca, this note is written on his behalf (Zandra Little) Physician Comments Seen and examined, plan as above, will advance diet today and possible discharge in AM. (Shanna Deluca MD) Zandra Little Feb 08, 2017 13:15 Shanna Deluca MD Feb 08, 2017 15:23
== END 2017-02-08 17:00 | disposition home or self-care (01) | DRG 446 ==
LOC: HEND 07:34 → N04A 17:00 → HEND 17:21 → OBSVTOIN 17:25
PROVIDERS: ADMIT Hospitalist; ATTEND Hospitalist
PROC: BF101ZZ Fluoroscopy of Bile Ducts using Low Osmolar Contrast (ICD-10-PCS; 2017-02-06)
PROC: 0FJB8ZZ Inspection of Hepatobiliary Duct, Via Natural or Artificial Opening Endoscopic (ICD-10-PCS; principal; 2017-02-06 10:04)
DX: K83.1 Obstruction of bile duct (principal); E80.7 Disorder of bilirubin metabolism, unspecified; F17.210 Nicotine dependence, cigarettes, uncomplicated; K21.9 Gastro-esophageal reflux disease without esophagitis; L40.9 Psoriasis, unspecified; R19.7 Diarrhea, unspecified; Z90.49 Acquired absence of other specified parts of digestive tract; Z86.010 Personal history of colon polyps
CPT/HCPCS: 74181; 74330; 76377; 80048; 80053; 80076; 83735; 85025; 90732; 93005; C1769; C9113; J2370; J2405; J7030; J7120; Q9967